=== PATIENT | female | born 1960 | race Hispanic/Latino ===

== ENCOUNTER 2017-05-24 22:16 | Emergency (ER) | payer SELFPAY ==
[2017-05-24] MEDS ORDERED: CATAPRES PO ONE (23:08)
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
[2017-05-25] MEDS ORDERED: TORADOL IM ONE (00:30)
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
[2017-05-25 05:37] VITALS: BP 159/106
== END 2017-05-25 02:50 | disposition home or self-care (01) ==
LOC: ED 22:16
DX: S80.01XA Contusion of right knee, initial encounter (principal); M19.90 Unspecified osteoarthritis, unspecified site; M54.89 Other dorsalgia; M54.2 Cervicalgia; I10 Essential (primary) hypertension; K21.9 Gastro-esophageal reflux disease without esophagitis; V89.2XXA Person injured in unspecified motor-vehicle accident, traffic, initial encounter; Y93.89 Activity, other specified; Y92.89 Other specified places as the place of occurrence of the external cause; Y99.8 Other external cause status
CPT/HCPCS: 72040; 72072; 72100; 72170; 73030; 73562; 96372; 99283; J1885

== ENCOUNTER 2017-07-12 13:09 | Inpatient (IN) | payer SELFPAY ==
--- NOTE | 2017-07-12 13:38 | XRay Report ---
Chest 2 views: History: Shortness of breath. Findings: Normal cardiomediastinal silhouette the trachea is midline. No consolidation, pneumothorax or pleural effusion. Impression: No acute cardiopulmonary findings.
[2017-07-12] MEDS ORDERED: PROVENTIL IH ONE (13:39)
[2017-07-12] MEDS ORDERED: ATROVENT IH ONE (13:39)
[2017-07-12] MEDS ORDERED: TESSALON PERLES PO ONE (13:40)
[2017-07-12] MEDS ORDERED: CATAPRES PO ONE (13:49)
--- NOTE | 2017-07-12 13:54 | Emergency Department Report ---
HPI - General Chief Complaint: Dyspnea/Respdistress Time Seen by Provider: 07/12/17 13:29 - HPI HPI: Room 19 The patient is a 56-year-old female presenting with a chief complaint of "I feel like I have pneumonia." The patient states for the past 5 days she has had shortness of breath and back pain and a cough productive of green sputum. Patient does admit to rhinorrhea. Patient states she gets a headache whenever she coughs. The patient states she had a fever of 104.3F. The patient states there are sick contacts at home. Patient states she feels same way she felt when she was diagnosed with pneumonia in the past Location: Lungs, see above Duration: For 5 days Quality: Shortness of breath Severity: Moderate Modifying factors: [see above] Context: [see above] Mode of transportation: Unknown ED Past Medical Hx - Past Medical History Hx Hypertension: Yes Hx GERD: Yes Hx Arthritis: Yes Hx Asthma: Yes Additional medical history: bronchitis, knee arthritis bilaterally,obesity- morbid - Surgical History Additional Surgical History: bilateral knee surgery - Family History Family history: no significant - Social History Smoking Status: Never Smoker Substance Use Type: None (denies illicit drug use) - Medications Home Medications: Home Medications Medication Instructions Recorded Confirmed Last Taken Type Hydrochlorothiazide 25 mg PO DAILY #30 tablet 07/05/14 07/28/14 07/28/14 Rx Metoprolol [Lopressor TAB] 100 mg PO DAILY #30 tablet 07/05/14 07/28/14 Rx amLODIPine [Norvasc] 10 mg PO DAILY #30 tablet 07/05/14 07/28/14 07/28/14 Rx cloNIDine [Catapres] 0.2 mg PO BID #60 tablet 07/05/14 07/28/14 07/28/14 Rx Carisoprodol [Soma] 250 mg PO TIDHS #20 tablet 07/28/14 Unknown Rx Ibuprofen [Motrin] 800 mg PO Q8HR PRN #10 tablet 05/25/17 Unknown Rx oxyCODONE /ACETAMINOPHEN [Percocet 1 tab PO Q6HR PRN #15 tablet 05/25/17 Unknown Rx 5/325 mg] ED Review of Systems ROS: Stated complaint: PNEUMONIA Other details as noted in HPI Constitutional: fever ENT: congestion, other (rhinorrhea) Respiratory: cough, shortness of breath Musculoskeletal: back pain Neurological: headache Physical Exam - Physical Exam Vital Signs: Vital Signs 07/12/17 13:11 Temperature 98.3 F Pulse Rate 96 H Respiratory 20 Rate Blood Pressure 198/113 O2 Sat by Pulse 93 Oximetry Physical Exam: GENERAL: The patient is well-developed well-nourished female lying on stretcher with occasional cough. [] HEENT: Normocephalic. Atraumatic. Extraocular motions are intact. Patient has moist mucous membranes. NECK: Supple. No meningitic signs are noted. Trachea midline CHEST/LUNGS: Rhonchi and occasional cough. There is no respiratory distress noted. HEART/CARDIOVASCULAR: Regular. There is no tachycardia. There is no gallop rub or murmur. ABDOMEN: Abdomen is soft, nontender. Patient has normal bowel sounds. There is no abdominal distention. SKIN: There is no rash. There is no edema. There is no diaphoresis. NEURO: The patient is awake, alert, and oriented. The patient is cooperative. The patient has normal speech MUSCULOSKELETAL: There is no evidence of acute injury. ED Course Vital Signs 07/12/17 13:11 Temperature 98.3 F Pulse Rate 96 H Respiratory 20 Rate Blood Pressure 198/113 O2 Sat by Pulse 93 Oximetry ED Medical Decision Making - Lab Data Result diagrams: 07/12/17 13:39 07/12/17 13:39 Laboratory Tests 07/12/17 07/12/17 13:39 13:39 WBC 7.3 RBC 4.94 Hgb 14.0 Hct 43.3 H MCV 88 MCH 28 MCHC 32 RDW 15.0 Plt Count 197 Lymph % (Auto) 29.8 [place] % (Auto) 11.7 H Eos % (Auto) 5.3 H Baso % (Auto) 0.7 Lymph # 2.2 Isabella # 0.9 H Eos # 0.4 Baso # 0.1 Seg Neutrophils % 52.5 Seg Neutrophils # 3.8 Sodium 143 Potassium 3.7 Chloride 102.0 Carbon Dioxide 29 Anion Gap 16 BUN 10 Creatinine 0.7 Estimated GFR > 60 BUN/Creatinine Ratio 14 Glucose 105 H Calcium 8.4 Influenza negative - EKG Data -: EKG Interpreted by Ca EKG shows normal: sinus rhythm Rate: normal - EKG Data When compared to previous EKG there are: previous EKG unavailable Interpretation: nonspecific ST-T wave sarah (T-wave inversion in aVL) - Radiology Data Radiology results: report reviewed (chest x-ray), image reviewed (chest x-ray) interpreted by me: Chest x-ray-no focal infiltrates, no pneumothorax Chest 2 views: History: Shortness of breath. Findings: Normal cardiomediastinal silhouette the trachea is midline. No consolidation, pneumothorax or pleural effusion. Impression: No acute cardiopulmonary findings. Transcribed By: PTP Dictated By: KAIDEN KEVIN MD Electronically Authenticated By: KAIDEN KEVIN MD Signed Date/Time: 07/12/171320 DD/ 20 TD/TT: 07/12/171320 - Differential Diagnosis pneumonia, bronchitis, influenza Critical care attestation.: If time is entered above; I have spent that time in minutes in the direct care of this critically ill patient, excluding procedure time. ED Disposition Clinical Impression: Shortness of breath, Hypoxia, Productive cough Disposition: 09 OP ADMIT IP TO THIS HOSP Is pt being admited?: Yes Does the pt Need Aspirin: No Condition: Fair Time of Disposition: 14:36 (hospitalist paged (Dr Quan))
[2017-07-12 13:55] LABS: Basophils # (Auto) 0.1 K/mm3 (0.0-0.1); Basophils % (Auto) 0.7 % (0.0-1.8); Eosinophils # (Auto) 0.4 K/mm3 (0.0-0.4); Eosinophils % (Auto) 5.3 % (0.0-4.3); Hematocrit 43.3 % (30.3-42.9); Lymphocytes # (Auto) 2.2 K/mm3 (1.2-5.4); Lymphocytes % (Auto) 29.8 % (13.4-35.0); Mean Corpuscular HGB Conc 32 % (30-34); Mean Corpuscular Hemoglobin 28 pg (28-32); Mean Corpuscular Volume 88 fl (79-97); Monocytes # (Auto) 0.9 K/mm3 (0.0-0.8); Monocytes % (Auto) 11.7 % (0.0-7.3); Platelet Count 197 K/mm3 (140-440); Red Blood Count 4.94 M/mm3 (3.65-5.03)
[2017-07-12 14:10] LABS: BUN/Creatinine Ratio 14; Blood Urea Nitrogen 10 mg/dL (7-17); Calcium 8.4 mg/dL (8.4-10.2); Hemolysis Index 5
[2017-07-12] MEDS ORDERED: LEVAQUIN 500MG/100ML 500 MG/100 ML BAG IV ONE (14:35)
--- NOTE | 2017-07-12 19:22 | History and Physical Report ---
History of Present Illness Date of examination: 07/12/17 Date of admission: 07/12/17 15:28 Chief complaint: Cc Fever /Cough 3 to 4 days History of present illness: EMILIE 56-year-old AA female presenting with a chief complaint of possible "Pneumonia ".The patient states for the past 5 days she has had shortness of breath and back pain and a cough productive of green sputum. Patient does admit to rhinorrhea. Patient states she gets a headache whenever she coughs. The patient states she had a fever of 104.3F. The patient states there are sick contacts at home. Patient states she feels same way she felt when she was diagnosed with pneumonia in the past. No exacerbating or relieving factors. Past Medical History Hx Hypertension: Yes Hx GERD: Yes Hx Arthritis: Yes Hx Asthma: Yes Additional medical history: bronchitis, knee arthritis bilaterally,obesity- morbid Surgical History Additional Surgical History: bilateral knee surgery Family History Family history: no significant Social History Smoking Status: Never Smoker Substance Use Type: None (denies illicit drug use) Medications Home Medications: Home Medications Medication Instructions Recorded Confirmed Last Taken Type Hydrochlorothiazide 25 mg PO DAILY #30 tablet 07/05/14 07/28/14 07/28/14 Rx Metoprolol [Lopressor TAB] 100 mg PO DAILY #30 tablet 07/05/14 07/28/14 Rx amLODIPine [Norvasc] 10 mg PO DAILY #30 tablet 07/05/14 07/28/14 07/28/14 Rx cloNIDine [Catapres] 0.2 mg PO BID #60 tablet 07/05/14 07/28/14 07/28/14 Rx Carisoprodol [Soma] 250 mg PO TIDHS #20 tablet 07/28/14 Unknown Rx Ibuprofen [Motrin] 800 mg PO Q8HR PRN #10 tablet 05/25/17 Unknown Rx oxyCODONE /ACETAMINOPHEN [Percocet 1 tab PO Q6HR PRN #15 tablet 05/25/17 Unknown Rx 5/325 mg] Medications and Allergies Allergies Allergy/AdvReac Type Severity Reaction Status Date / Time No Known Allergies Allergy Verified 07/12/17 13:11 Home Medications Medication Instructions Recorded Confirmed Last Taken Type cloNIDine [Catapres] 0.2 mg PO BID #60 tablet 12/24/14 12/31/17 01/16/15 Rx Carisoprodol [Soma] 250 mg PO TIDHS #20 tablet 07/28/14 07/12/17 Unknown Rx Ibuprofen [Motrin] 800 mg PO Q8HR PRN #10 tablet 05/25/17 07/12/17 Unknown Rx oxyCODONE /ACETAMINOPHEN [Percocet 1 tab PO Q6HR PRN #15 tablet 05/25/17 Unknown Rx 5/325 mg] Verapamil HCl [Verapamil ER] 120 mg PO DAILY 07/12/17 07/12/17 Unknown History Review of Systems All systems: negative Constitutional: fever, chills, anorexia, lethargy, poor appetite, chronic pain, no weight loss, no weight gain Ears, nose, mouth and throat: no sore throat, no swelling in mouth, no swelling in throat, no odynophagia Breasts: deferred Cardiovascular: shortness of breath, no chest pain, no orthopnea, no palpitations, no rapid/irregular heart beat, no edema, no syncope, no lightheadedness Respiratory: cough, cough with sputum, shortness of breath, congestion, wheezing Gastrointestinal: no abdominal pain, no nausea, no vomiting, no diarrhea, no constipation Genitourinary Female: no dysuria, no urinary frequency, no urgency, no stress incontinence Musculoskeletal: no neck stiffness, no neck pain, no shooting arm pain, no shooting leg pain Integumentary: no rash, no pruritis, no redness Neurological: no seizures, no syncope Psychiatric: no anxiety, no memory loss, no change in sleep habits, no sleep disturbances Endocrine: no cold intolerance, no heat intolerance, no polyphagia, no excessive thirst Hematologic/Lymphatic: no easy bruising, no easy bleeding Allergic/Immunologic: no urticaria, no allergic rhinitis, no wheezing Exam - Constitutional Vitals: Temp Pulse Resp BP Pulse Ox 98.3 F 82 27 H 143/87 96 07/12/17 13:11 07/12/17 19:01 07/12/17 19:01 07/12/17 19:01 07/12/17 19:01 General appearance: Present: no acute distress, well-nourished - EENT Eyes: Present: PERRL ENT: hearing intact, clear oral mucosa - Neck Neck: Present: supple, normal ROM - Respiratory Respiratory effort: normal Respiratory: bilateral: rales, rhonchi - Cardiovascular Heart rate: 80 Rhythm: regular Heart Sounds: Present: S1 & S2. Absent: rub, click - Extremities Extremities: no ischemia, pulses intact, pulses symmetrical, No edema Peripheral Pulses: within normal limits - Abdominal General gastrointestinal: Present: soft, non-tender, non-distended, normal bowel sounds Female genitourinary: Present: normal - Rectal Rectal Exam: deferred - Integumentary Integumentary: Present: clear, warm, dry - Musculoskeletal Musculoskeletal: gait normal, strength equal bilaterally - Psychiatric Psychiatric: appropriate mood/affect, intact judgment & insight - Neurologic Neurologic: CNII-XII intact, moves all extremities - Allied Health Allied health notes reviewed: nursing, case management Results - Labs CBC & Chem 7: 07/12/17 13:39 07/12/17 13:39 Labs: Laboratory Last Values WBC 7.3 K/mm3 (4.5-11.0) 07/12/17 13:39 RBC 4.94 M/mm3 (3.65-5.03) 07/12/17 13:39 Hgb 14.0 gm/dl (10.1-14.3) 07/12/17 13:39 Hct 43.3 % (30.3-42.9) H 07/12/17 13:39 MCV 88 fl (79-97) 07/12/17 13:39 MCH 28 pg (28-32) 07/12/17 13:39 MCHC 32 % (30-34) 07/12/17 13:39 RDW 15.0 % (13.2-15.2) 07/12/17 13:39 Plt Count 197 K/mm3 (140-440) 07/12/17 13:39 Lymph % (Auto) 29.8 % (13.4-35.0) 07/12/17 13:39 [place] % (Auto) 11.7 % (0.0-7.3) H 07/12/17 13:39 Eos % (Auto) 5.3 % (0.0-4.3) H 07/12/17 13:39 Baso % (Auto) 0.7 % (0.0-1.8) 07/12/17 13:39 Lymph # 2.2 K/mm3 (1.2-5.4) 07/12/17 13:39 [place] # 0.9 K/mm3 (0.0-0.8) H 07/12/17 13:39 Eos # 0.4 K/mm3 (0.0-0.4) 07/12/17 13:39 Baso # 0.1 K/mm3 (0.0-0.1) 07/12/17 13:39 Seg Neutrophils % 52.5 % (40.0-70.0) 07/12/17 13:39 Seg Neutrophils # 3.8 K/mm3 (1.8-7.7) 07/12/17 13:39 POC ABG pH 7.360 (7.35-7.45) 07/12/17 13:56 POC ABG pCO2 52.8 (35-45) H 07/12/17 13:56 POC ABG pO2 60 (80-105) L 07/12/17 13:56 POC ABG HCO3 29.8 07/12/17 13:56 POC ABG Total CO2 31 07/12/17 13:56 POC ABG O2 Sat 89 07/12/17 13:56 POC ABG Base Excess 4 07/12/17 13:56 FiO2 21 % 07/12/17 13:56 Sodium 143 mmol/L (137-145) 07/12/17 13:39 Potassium 3.7 mmol/L (3.6-5.0) 07/12/17 13:39 Chloride 102.0 mmol/L (98-107) 07/12/17 13:39 Carbon Dioxide 29 mmol/L (22-30) 07/12/17 13:39 Anion Gap 16 mmol/L 07/12/17 13:39 BUN 10 mg/dL (7-17) 07/12/17 13:39 Creatinine 0.7 mg/dL (0.7-1.2) 07/12/17 13:39 Estimated GFR > 60 ml/min 07/12/17 13:39 BUN/Creatinine Ratio 14 % 07/12/17 13:39 Glucose 105 mg/dL (65-100) H 07/12/17 13:39 Calcium 8.4 mg/dL (8.4-10.2) 07/12/17 13:39 Short CBC 07/12/17 Range/Units 13:39 WBC 7.3 (4.5-11.0) K/mm3 Hgb 14.0 (10.1-14.3) gm/dl Hct 43.3 H (30.3-42.9) % Plt Count 197 (140-440) K/mm3 [facility] 07/12/17 13:39 Sodium 143 Potassium 3.7 Chloride 102.0 Carbon Dioxide 29 BUN 10 Creatinine 0.7 Glucose 105 H Calcium 8.4 - Imaging and Cardiology EKG: report reviewed Chest x-ray: report reviewed (NAF) Assessment and Plan Advance Directives: Yes (FC) VTE prophylaxis?: Chemical Plan of care discussed with patient/family: Yes - Patient Problems (1) Acute respiratory failure Current Visit: No Status: Acute Qualifiers: Respiratory failure complication: hypoxia Qualified Code(s): J96.01 - Acute respiratory failure with hypoxia Plan to address problem: Patient had sats of 88 in ER.Hence treat as resp failure.IV abx low dose steroids and Duonebs (2) Pneumonia Current Visit: Yes Status: Acute Qualifiers: Lung location: unspecified part of lung Plan to address problem: Early pneumonia Started on IV Levaquin (3) HTN (hypertension) Current Visit: Yes Status: Chronic Qualifiers: Hypertension type: essential hypertension Qualified Code(s): I10 - Essential (primary) hypertension Plan to address problem: Cont antihypertensives (4) Chronic pain Current Visit: Yes Status: Chronic Qualifiers: Chronic pain type: chronic pain syndrome Qualified Code(s): G89.4 - Chronic pain syndrome Plan to address problem: Cont Analgesics (5) DVT prophylaxis Current Visit: Yes Status: Acute Plan to address problem: On Lovenox
[2017-07-12] MEDS ORDERED: MOTRIN PO PRN (19:23)
[2017-07-12] MEDS: DUONEB *Not for PRN Use IH SCH (20:50)
[2017-07-12] MEDS: CALAN SR PO SCH (21:23)
[2017-07-12] MEDS: CATAPRES PO SCH (23:40)
[2017-07-13] MEDS: PERCOCET 5/325 PO PRN ×3 (01:00→22:00)
[2017-07-13] MEDS: TESSALON PERLES PO PRN ×3 (05:34→22:00)
[2017-07-13] MEDS ORDERED: DUONEB *Not for PRN Use IH ONE (07:39)
[2017-07-13] MEDS: DUONEB *Not for PRN Use IH SCH ×4 (07:41→19:25)
[2017-07-13] MEDS: CALAN SR PO SCH (10:13)
[2017-07-13] MEDS: CATAPRES PO SCH ×2 (10:13→22:32)
[2017-07-13] MEDS: LEVAQUIN 750MG/150ML 750 MG/150 ML BAG IV SCH (13:20)
--- NOTE | 2017-07-13 16:50 | Discharge Summary ---
Providers - Providers Date of Admission: 07/12/17 15:28 Attending physician: BERNIE ALANIS MD Primary care physician: FORREST FERNANDO Hospitalization Condition: Fair Hospital course: 57-year-old man who presented with fever and shortness of breath. She was found to have acute bronchitis and acute respiratory failure. She was treated with antibiotic steroids and nebulizer treatments. Pneumonia was excluded based on x-ray findings. She clinically improved on subsequent disorders Discharge diagnoses Acute hypoxic respiratory failure Pneumonia was ruled out Hypertension Chronic pain syndrome Acute bronchitis Disposition: TO HOME OR SELFCARE Time spent for discharge: 33 minutes Core Measure Documentation - Palliative Care Palliative Care/ Comfort Measures: Not Applicable - Core Measures Any of the following diagnoses?: none Exam - Constitutional Vitals: Temp Pulse Resp BP Pulse Ox 98.3 F 71 22 120/49 93 07/13/17 15:18 07/13/17 15:18 07/13/17 15:18 07/13/17 15:18 07/13/17 15:18 General appearance: Present: no acute distress, well-nourished - EENT Eyes: Present: PERRL ENT: hearing intact, clear oral mucosa - Neck Neck: Present: supple, normal ROM - Respiratory Respiratory effort: normal Respiratory: bilateral: CTA - Cardiovascular Heart Sounds: Present: S1 & S2. Absent: rub, click - Extremities Extremities: pulses symmetrical, No edema Peripheral Pulses: within normal limits - Abdominal General gastrointestinal: Present: soft, non-tender, non-distended, normal bowel sounds Female genitourinary: Present: normal - Integumentary Integumentary: Present: clear, warm, dry - Musculoskeletal Musculoskeletal: gait normal, strength equal bilaterally - Psychiatric Psychiatric: appropriate mood/affect, intact judgment & insight - Neurologic Neurologic: CNII-XII intact, moves all extremities Plan Follow up with: FORREST FERNANDO MD [Primary Care Provider] - 7 Days Prescriptions: Azithromycin [Zithromax Z-TEAGAN] 0 mg PO DAILY #1 pack Ipratropium/Albuterol Sulfate [Combivent Respimat] 1 spray IH QID #1 aer.w.adap oxyCODONE /ACETAMINOPHEN [Percocet 5/325 mg] 1 tab PO Q6HR PRN #15 tablet PRN Reason: Pain Prednisone [predniSONE 10 mg (6-Day Pack, 21 Tabs)] 10 mg PO .TAPER #1 tab.ds.pk
--- NOTE | 2017-07-13 18:10 | Progress Note ---
Assessment and Plan Assessment and plan: 57f admitted with sob and cough, found to have acute bronchitis Acute hypoxic respiratory failure attempt to wean off oxygen Pneumonia was ruled out Hypertension continue BP meds Chronic pain syndrome continue pain meds Acute bronchitis continue steroids, abx and nebs History Interval history: Review of systems Constitutional: No fevers, no malaise, no joint pains CVS: No chest pain, no orthopnea, no dyspnea on exertion, no pedal edema GI: No abdominal pain, no diarrhea, no vomiting, no constipation Respiratory: admits sob and productive coungKASSANDRA Hospitalist Physical - Constitutional Vitals: Temp Pulse Resp BP Pulse Ox 98.3 F 71 22 120/49 93 07/13/17 15:18 07/13/17 15:18 07/13/17 15:18 07/13/17 15:18 07/13/17 15:18 General appearance: Present: no acute distress, well-nourished, obese - EENT Eyes: Present: PERRL ENT: hearing intact - Neck Neck: Present: supple - Respiratory Respiratory effort: normal Respiratory: bilateral: rhonchi - Cardiovascular Rhythm: regular Heart Sounds: Present: S1 & S2 - Extremities Extremities: no ischemia Peripheral Pulses: within normal limits - Abdominal General gastrointestinal: soft, non-tender - Integumentary Integumentary: Present: clear, warm, dry - Psychiatric Psychiatric: appropriate mood/affect, intact judgment & insight - Neurologic Neurologic: CNII-XII intact, no focal deficits, moves all extremities Results - Labs CBC & Chem 7: 07/12/17 13:39 07/12/17 13:39 Labs: Laboratory Last Values WBC 7.3 K/mm3 (4.5-11.0) 07/12/17 13:39 RBC 4.94 M/mm3 (3.65-5.03) 07/12/17 13:39 Hgb 14.0 gm/dl (10.1-14.3) 07/12/17 13:39 Hct 43.3 % (30.3-42.9) H 07/12/17 13:39 MCV 88 fl (79-97) 07/12/17 13:39 MCH 28 pg (28-32) 07/12/17 13:39 MCHC 32 % (30-34) 07/12/17 13:39 RDW 15.0 % (13.2-15.2) 07/12/17 13:39 Plt Count 197 K/mm3 (140-440) 07/12/17 13:39 Lymph % (Auto) 29.8 % (13.4-35.0) 07/12/17 13:39 Thurston % (Auto) 11.7 % (0.0-7.3) H 07/12/17 13:39 Eos % (Auto) 5.3 % (0.0-4.3) H 07/12/17 13:39 Baso % (Auto) 0.7 % (0.0-1.8) 07/12/17 13:39 Lymph # 2.2 K/mm3 (1.2-5.4) 07/12/17 13:39 Thurston # 0.9 K/mm3 (0.0-0.8) H 07/12/17 13:39 Eos # 0.4 K/mm3 (0.0-0.4) 07/12/17 13:39 Baso # 0.1 K/mm3 (0.0-0.1) 07/12/17 13:39 Seg Neutrophils % 52.5 % (40.0-70.0) 07/12/17 13:39 Seg Neutrophils # 3.8 K/mm3 (1.8-7.7) 07/12/17 13:39 POC ABG pH 7.360 (7.35-7.45) 07/12/17 13:56 POC ABG pCO2 52.8 (35-45) H 07/12/17 13:56 POC ABG pO2 60 (80-105) L 07/12/17 13:56 POC ABG HCO3 29.8 07/12/17 13:56 POC ABG Total CO2 31 07/12/17 13:56 POC ABG O2 Sat 89 07/12/17 13:56 POC ABG Base Excess 4 07/12/17 13:56 FiO2 21 % 07/12/17 13:56 Sodium 143 mmol/L (137-145) 07/12/17 13:39 Potassium 3.7 mmol/L (3.6-5.0) 07/12/17 13:39 Chloride 102.0 mmol/L (98-107) 07/12/17 13:39 Carbon Dioxide 29 mmol/L (22-30) 07/12/17 13:39 Anion Gap 16 mmol/L 07/12/17 13:39 BUN 10 mg/dL (7-17) 07/12/17 13:39 Creatinine 0.7 mg/dL (0.7-1.2) 07/12/17 13:39 Estimated GFR > 60 ml/min 07/12/17 13:39 BUN/Creatinine Ratio 14 % 07/12/17 13:39 Glucose 105 mg/dL (65-100) H 07/12/17 13:39 Calcium 8.4 mg/dL (8.4-10.2) 07/12/17 13:39
[2017-07-14] MEDS: DUONEB *Not for PRN Use IH SCH ×4 (01:56→19:19)
[2017-07-14] MEDS: PERCOCET 5/325 PO PRN ×2 (07:34→14:21)
[2017-07-14] MEDS: TESSALON PERLES PO PRN ×2 (07:35→14:20)
[2017-07-14] MEDS: CALAN SR PO SCH (09:54)
[2017-07-14] MEDS: CATAPRES PO SCH (09:55)
[2017-07-14] MEDS ORDERED: PNEUMOVAX 23 IM ONE (12:00)
[2017-07-14] MEDS ORDERED: Fluarix Quad 2017-2018(36 MOS+ IM ONE (12:00)
[2017-07-14] MEDS: LEVAQUIN 750MG/150ML 750 MG/150 ML BAG IV SCH (16:19)
[2017-07-14 18:30] VITALS: BP 125/68
== END 2017-07-14 19:30 | disposition home or self-care (01) | DRG 189 ==
LOC: ED 13:09 → 3A 15:28
PROVIDERS: ADMIT Internal Medicine; ATTEND Internal Medicine
PROC: 4A033R1 Measurement of Arterial Saturation, Peripheral, Percutaneous Approach (ICD-10-PCS; principal; 2017-07-12)
PROC: 3E0234Z Introduction of Serum, Toxoid and Vaccine into Muscle, Percutaneous Approach (ICD-10-PCS; 2017-07-14)
DX: J96.01 Acute respiratory failure with hypoxia (principal); Z68.42 Body mass index [BMI] 45.0-49.9, adult; J20.9 Acute bronchitis, unspecified; I10 Essential (primary) hypertension; G89.4 Chronic pain syndrome; K21.9 Gastro-esophageal reflux disease without esophagitis; E66.01 Morbid (severe) obesity due to excess calories; M17.0 Bilateral primary osteoarthritis of knee; Z79.899 Other long term (current) drug therapy; Z23 Encounter for immunization
CPT/HCPCS: 36415; 71020; 80048; 82803; 85025; 87040; 87400; 90686; 90732; 93005; 93010; 94640; 94760; 96365; J1956; J2920

== ENCOUNTER 2018-10-16 18:38 | Emergency (ER) | payer SELFPAY ==
[2018-10-16] MEDS ORDERED: MORPHINE IV ONE (19:49)
[2018-10-16] MEDS ORDERED: TORADOL IV ONE (19:49)
[2018-10-16] MEDS ORDERED: ZOFRAN IV ONE (19:49)
--- NOTE | 2018-10-16 21:27 | XRay Report ---
PROCEDURE: XR HUMERUS 2+V LT TECHNIQUE: 3 views of the left humerus HISTORY: fall injury COMPARISONS: FINDINGS: There is some inferior subluxation of the humerus at the glenohumeral joint space. No acute fracture identified. No anterior or posterior dislocation identified. IMPRESSION: Inferior subluxation of the humerus without definitive anterior or posterior dislocation. No fracture identified. This document is electronically signed by Darin Limon MD., October 16 2018 09:25:49 PM ET
--- NOTE | 2018-10-16 22:25 | XRay Report ---
PROCEDURE: LEFT SHOULDER, 3 OR MORE VIEWS TECHNIQUE: LEFT shoulder radiographs including AP views in internal and external rotation and abduct ion. CPT 20696 HISTORY: Trauma and pain COMPARISONS: None . FINDINGS: Fracture (s) and/or Dislocation(s): There is avulsion fracture of the greater tuberosity. There is w idening of the glenohumeral joint suggesting a joint effusion. There is no roxanne dislocation. . Joint space(s): Normal . Soft tissues: Normal . Bone mineralization: Normal . Foreign bodies: None . IMPRESSION: There is avulsion fracture of the greater tuberosity of the humeral head. There is widen ing of the glenohumeral joint suggesting a joint effusion. There is no roxanne dislocation. . . This document is electronically signed by Richard Alexander MD., October 16 2018 10:23:33 PM ET
--- NOTE | 2018-10-16 22:39 | Emergency Department Report ---
ED Extremity Problem HPI - General Chief complaint: Fall Stated complaint: DISLOCATED (L) SHOULDER Time Seen by Provider: 10/16/18 19:48 Source: patient, EMS Mode of arrival: Stretcher Limitations: No Limitations - History of Present Illness Initial comments: Patient is a 58-year-old female who was at the movies with her grandchildren and while entering a doorway the door swung out faster than she was expecting and hit her and knocked her to the ground. Patient fell on the left upper extremity. Patient has 10 out of 10 pain with any movement of the left shoulder. Patient states as a throbbing aching pain. Patient denies any other injury at this time. Severity scale (0 -10): 8 - Related Data Previous Rx's Medication Instructions Recorded Last Taken Type Ibuprofen [Motrin 800 MG tab] 800 mg PO Q8HR PRN #10 tablet 05/25/17 Unknown Rx ALBUTEROL Inhaler (OR & NICU) 2 puff IH QID PRN #1 inhalation 07/13/17 Unknown Rx [ProAir HFA Inhaler] Amoxicillin [Trimox CAP] 500 mg PO Q8H #14 capsule 07/13/17 Unknown Rx Benzonatate [Tessalon Perles] 100 mg PO TID PRN #14 capsule 07/13/17 Unknown Rx Ipratropium/Albuterol Sulfate 1 spray IH QID #1 aer.w.adap 07/13/17 Unknown Rx [Combivent Respimat] Prednisone [predniSONE 10 mg 10 mg PO .TAPER #1 tab.ds.pk 07/13/17 Unknown Rx (6-Day Pack, 21 Tabs)] Verapamil HCl [Verapamil ER] 120 mg PO DAILY #30 tablet.er 07/13/17 Unknown Rx cloNIDine [Catapres] 0.2 mg PO BID #60 tablet 07/13/17 Unknown Rx oxyCODONE /ACETAMINOPHEN [Percocet 1 tab PO Q6HR PRN #15 tablet 07/13/17 Unknown Rx 5/325 mg] Ibuprofen [Ibu] 800 mg PO Q8H PRN #20 tablet 10/16/18 Unknown Rx Oxycodone HCl/Acetaminophen 1 each PO Q6HR PRN #15 tablet 10/16/18 Unknown Rx [Percocet 7.5/325 mg] methOCARBAMOL [Robaxin TAB] 500 mg PO Q6H PRN #14 tablet 10/16/18 Unknown Rx Allergies Allergy/AdvReac Type Severity Reaction Status Date / Time No Known Allergies Allergy Verified 07/12/17 13:11 ED Review of Systems ROS: Stated complaint: DISLOCATED (L) SHOULDER Other details as noted in HPI Comment: All other systems reviewed and negative ED Past Medical Hx - Past Medical History Hx Hypertension: Yes Hx GERD: Yes Hx Arthritis: Yes (knees hand back) Hx Asthma: Yes Additional medical history: bronchitis, knee arthritis bilaterally,obesity- morbid - Surgical History Additional Surgical History: bilateral knee surgery - Social History Smoking Status: Never Smoker Substance Use Type: None - Medications Home Medications: Home Medications Medication Instructions Recorded Confirmed Last Taken Type Ibuprofen [Motrin 800 MG tab] 800 mg PO Q8HR PRN #10 tablet 05/25/17 07/12/17 Unknown Rx ALBUTEROL Inhaler (OR & NICU) 2 puff IH QID PRN #1 inhalation 07/13/17 Unknown Rx [ProAir HFA Inhaler] Amoxicillin [Trimox CAP] 500 mg PO Q8H #14 capsule 07/13/17 Unknown Rx Benzonatate [Tessalon Perles] 100 mg PO TID PRN #14 capsule 07/13/17 Unknown Rx Ipratropium/Albuterol Sulfate 1 spray IH QID #1 aer.w.adap 07/13/17 Unknown Rx [Combivent Respimat] Prednisone [predniSONE 10 mg 10 mg PO .TAPER #1 tab.ds.pk 07/13/17 Unknown Rx (6-Day Pack, 21 Tabs)] Verapamil HCl [Verapamil ER] 120 mg PO DAILY #30 tablet.er 07/13/17 Unknown Rx cloNIDine [Catapres] 0.2 mg PO BID #60 tablet 07/13/17 Unknown Rx oxyCODONE /ACETAMINOPHEN [Percocet 1 tab PO Q6HR PRN #15 tablet 07/13/17 Unknown Rx 5/325 mg] Ibuprofen [Ibu] 800 mg PO Q8H PRN #20 tablet 10/16/18 Unknown Rx Oxycodone HCl/Acetaminophen 1 each PO Q6HR PRN #15 tablet 10/16/18 Unknown Rx [Percocet 7.5/325 mg] methOCARBAMOL [Robaxin TAB] 500 mg PO Q6H PRN #14 tablet 10/16/18 Unknown Rx ED Physical Exam - General Limitations: No Limitations General appearance: alert, in no apparent distress - Head Head exam: Present: atraumatic, normocephalic - Eye Eye exam: Present: normal appearance - ENT ENT exam: Present: mucous membranes moist - Neck Neck exam: Present: normal inspection - Respiratory Respiratory exam: Present: normal lung sounds bilaterally. Absent: respiratory distress, wheezes, rales, rhonchi - Cardiovascular Cardiovascular Exam: Present: regular rate, normal rhythm. Absent: systolic murmur, diastolic murmur, rubs, gallop - GI/Abdominal GI/Abdominal exam: Present: soft, normal bowel sounds - Extremities Exam Extremities exam: Present: normal inspection, tenderness (to the left shoulder. Patient has decreased range of motion secondary to pain.). Absent: full ROM - Back Exam Back exam: Present: normal inspection - Neurological Exam Neurological exam: Present: alert, oriented X3 - Psychiatric Psychiatric exam: Present: normal affect, normal mood - Skin Skin exam: Present: warm, dry, intact, normal color. Absent: rash ED Course Vital Signs 10/16/18 19:29 Temperature 98.3 F Pulse Rate 87 Respiratory 18 Rate Blood Pressure 148/107 [Right] O2 Sat by Pulse 96 Oximetry ED Medical Decision Making - Radiology Data [facility] [address] [place] [address] XRay Report Signed Patient: CONNIE ESTRADA MR#: [id number] : 1960 Acct:[id number] Age/Sex: 58 / F ADM Date: 10/16/18 Loc: ED Attending Dr: Ordering Physician: MARY GERBER MD Date of Service: 10/16/18 Procedure(s): XR humerus 2+V LT Accession Number(s): [id number] cc: MARY GERBER MD Fluoro Time In Minutes: PROCEDURE: XR HUMERUS 2+V LT TECHNIQUE: 3 views of the left humerus HISTORY: fall injury COMPARISONS: FINDINGS: There is some inferior subluxation of the humerus at the glenohumeral joint space. No acute fracture identified. No anterior or posterior dislocation identified. IMPRESSION: Inferior subluxation of the humerus without definitive anterior or posterior dislocation. No fracture identified. This document is electronically signed by Darin Villafana MD., October 16 2018 09:25:49 PM ET Transcribed By: LAINE Dictated By: DEREK VILLAFANA MD Electronically Authenticated By: DEREK VILLAFANA MD Signed Date/Time: 10/16/182126 [facility] [address] [place] [address] XRay Report Signed Patient: CONNIE ESTRADA MR#: [id number] : 1960 Acct:[id number] Age/Sex: 58 / F ADM Date: 10/16/18 Loc: ED Attending Dr: Ordering Physician: MARY GERBER MD Date of Service: 10/16/18 Procedure(s): XR shoulder 2+V LT Accession Number(s): [id number] cc: MARY GERBER MD Fluoro Time In Minutes: PROCEDURE: LEFT SHOULDER, 3 OR MORE VIEWS TECHNIQUE: LEFT shoulder radiographs including AP views in internal and external rotation and abduction. CPT 27230 HISTORY: Trauma and pain COMPARISONS: None . FINDINGS: Fracture (s) and/or Dislocation(s): There is avulsion fracture of the greater tuberosity. There is widening of the glenohumeral joint suggesting a joint effusion. There is no roxanne dislocation. . Joint space(s): Normal . Soft tissues: Normal . Bone mineralization: Normal . Foreign bodies: None . IMPRESSION: There is avulsion fracture of the greater tuberosity of the humeral head. There is widening of the glenohumeral joint suggesting a joint effusion. There is no roxanne dislocation. . . This document is electronically signed by Ysabel Damon MD., October 16 2018 10:23:33 PM ET Transcribed By: CO Dictated By: YSABEL DAMON MD Electronically Authenticated By: YSABEL DAMON MD Signed Date/Time: 10/16/182224 DD/ 27 TD/TT: 10/16/182027 - Medical Decision Making Patient placed in a shoulder immobilizer and patient will be discharged home with follow-up with orthopedics. Critical care attestation.: If time is entered above; I have spent that time in minutes in the direct care of this critically ill patient, excluding procedure time. ED Disposition Clinical Impression: Humeral avulsion of inferior glenohumeral ligament of left shoulder Qualifiers: Encounter type: initial encounter Qualified Code(s): S43.492A - Other sprain of left shoulder joint, initial encounter Disposition: DC-01 TO HOME OR SELFCARE Is pt being admited?: No Does the pt Need Aspirin: No Condition: Stable Instructions: Arm Fracture in Adults (ED) [facility] [[facility] - 3-5 Days LATRICE MAI MD [Staff Physician] - 3-5 Days Time of Disposition: 22:41
[2018-10-16 22:57] VITALS: BP 138/91
== END 2018-10-16 22:57 | disposition home or self-care (01) ==
LOC: ED 18:38
DX: S43.492A Other sprain of left shoulder joint, initial encounter (principal); I10 Essential (primary) hypertension; K21.9 Gastro-esophageal reflux disease without esophagitis; J45.909 Unspecified asthma, uncomplicated; E66.01 Morbid (severe) obesity due to excess calories; Z68.42 Body mass index [BMI] 45.0-49.9, adult; W22.09XA Striking against other stationary object, initial encounter; Y93.89 Activity, other specified; Y92.89 Other specified places as the place of occurrence of the external cause; Y99.8 Other external cause status
CPT/HCPCS: 29105; 73030; 73060; 96374; 96375; 99284; J1885; J2270; J2405

== ENCOUNTER 2020-05-18 00:21 | Emergency (ER) | payer SELFPAY ==
--- NOTE | 2020-05-18 00:55 | Emergency Department Report ---
ED ENT HPI - General Chief complaint: Nosebleed Stated complaint: nose bleed Time Seen by Provider: 05/18/20 00:52 Source: patient Mode of arrival: Ambulatory Limitations: No Limitations - History of Present Illness Initial comments: Patient is a 59-year-old female abscess emergency room with complaints of nosebleed. Patient states her left nare started bleeding tonight and has stopped 2 hours ago. Patient states is very strange for her to have a nosebleed. Patient states she wanted to have it checked out. Patient states her nosebleed stopped and has not restarted. Patient denies nose pain. Patient denies headache. Patient denies dizziness. Patient denies chest pain. Patient denies any other complaints. Patient denies chest pain. Patient denies headache. Patient denies blurry vision. Patient states she missed her blood pressure medications today. Patient denies recent travel. Patient denies recent international travel. Patient denies exposure to the novel coronavirus. Patient denies sick contacts. Patient denies fever and chills. Patient denies cough. Patient denies diarrhea. Patient denies coming in contact with anybody with symptoms of the novel coronavirus. MD complaint: epistaxis -: Sudden Location: nose Severity: mild Consistency: now resolved Improves with: pressure Worsens with: none Associated Symptoms: denies: fever, cough, gum swelling, toothache, pain with swallowing, sore throat, tinnitus, hearing loss, discharge from ear, rhinorrhea - Related Data Home Medications Medication Instructions Recorded Confirmed Last Taken ALPRAZolam [Xanax TAB] 0.25 mg PO TID PRN 09/26/19 09/26/19 Unknown Amlodipine Besylate [Norvasc] 10 mg PO DAILY 09/26/19 09/26/19 Unknown carisoprodoL [Soma] 350 mg PO BID 09/26/19 09/26/19 Unknown Previous Rx's Medication Instructions Recorded Last Taken Type Benzonatate [Tessalon Perles] 100 mg PO TID PRN #14 capsule 07/13/17 Unknown Rx Fluconazole (Nf) [Diflucan TAB] 150 mg PO ONCE #1 tablet 09/30/19 Unknown Rx Furosemide [Lasix TAB] 40 mg PO DAILY #30 tablet 09/30/19 Unknown Rx Allergies Allergy/AdvReac Type Severity Reaction Status Date / Time No Known Allergies Allergy Verified 07/12/17 13:11 ED Dental HPI - General Chief complaint: Nosebleed Stated complaint: nose bleed Time Seen by Provider: 05/18/20 00:52 Source: patient Mode of arrival: Ambulatory Limitations: No Limitations - Related Data Home Medications Medication Instructions Recorded Confirmed Last Taken ALPRAZolam [Xanax TAB] 0.25 mg PO TID PRN 09/26/19 09/26/19 Unknown Amlodipine Besylate [Norvasc] 10 mg PO DAILY 09/26/19 09/26/19 Unknown carisoprodoL [Soma] 350 mg PO BID 09/26/19 09/26/19 Unknown Previous Rx's Medication Instructions Recorded Last Taken Type Benzonatate [Tessalon Perles] 100 mg PO TID PRN #14 capsule 07/13/17 Unknown Rx Fluconazole (Nf) [Diflucan TAB] 150 mg PO ONCE #1 tablet 09/30/19 Unknown Rx Furosemide [Lasix TAB] 40 mg PO DAILY #30 tablet 09/30/19 Unknown Rx Allergies Allergy/AdvReac Type Severity Reaction Status Date / Time No Known Allergies Allergy Verified 07/12/17 13:11 ED Review of Systems ROS: Stated complaint: COLD/NOSE/THROAT PAIN/BLEEDING Other details as noted in HPI Constitutional: denies: chills, fever Eyes: denies: eye pain, eye discharge, vision change ENT: epistaxis. denies: ear pain, throat pain Respiratory: denies: cough, shortness of breath, wheezing Cardiovascular: denies: chest pain, palpitations Endocrine: no symptoms reported Gastrointestinal: denies: abdominal pain, nausea, diarrhea Genitourinary: denies: urgency, dysuria, discharge Musculoskeletal: denies: back pain, joint swelling, arthralgia Skin: denies: rash, lesions Neurological: denies: headache, weakness, paresthesias Psychiatric: denies: anxiety, depression Hematological/Lymphatic: denies: easy bleeding, easy bruising ED Past Medical Hx - Past Medical History Previous Medical History?: Yes Hx Hypertension: Yes Hx Congestive Heart Failure: No Hx Diabetes: No Hx GERD: Yes Hx Arthritis: Yes (knees hand back) Hx Asthma: No Hx COPD: No Additional medical history: bronchitis, knee arthritis bilaterally,obesity- morbid - Surgical History Past Surgical History?: Yes Additional Surgical History: bilateral knee surgery - Family History Family history: no significant - Social History Smoking Status: Never Smoker Substance Use Type: None - Medications Home Medications: Home Medications Medication Instructions Recorded Confirmed Last Taken Type Benzonatate [Tessalon Perles] 100 mg PO TID PRN #14 capsule 07/13/17 09/26/19 Unknown Rx ALPRAZolam [Xanax TAB] 0.25 mg PO TID PRN 09/26/19 09/26/19 Unknown History Amlodipine Besylate [Norvasc] 10 mg PO DAILY 09/26/19 09/26/19 Unknown History carisoprodoL [Soma] 350 mg PO BID 09/26/19 09/26/19 Unknown History Fluconazole (Nf) [Diflucan TAB] 150 mg PO ONCE #1 tablet 09/30/19 Unknown Rx Furosemide [Lasix TAB] 40 mg PO DAILY #30 tablet 09/30/19 Unknown Rx ED Physical Exam - General Limitations: No Limitations General appearance: alert, in no apparent distress - Head Head exam: Present: atraumatic, normocephalic - Eye Eye exam: Present: normal appearance, PERRL Pupils: Present: normal accommodation - ENT ENT exam: Present: normal exam, normal orophraynx, mucous membranes moist, TM's normal bilaterally, normal external ear exam - Neck Neck exam: Present: normal inspection - Respiratory Respiratory exam: Present: normal lung sounds bilaterally. Absent: respiratory distress, wheezes, rales - Cardiovascular Cardiovascular Exam: Present: regular rate, normal rhythm. Absent: systolic murmur, diastolic murmur, rubs, gallop - GI/Abdominal GI/Abdominal exam: Present: soft, normal bowel sounds. Absent: distended, tenderness, guarding - Extremities Exam Extremities exam: Present: normal inspection - Back Exam Back exam: Present: normal inspection - Neurological Exam Neurological exam: Present: alert, oriented X3 - Psychiatric Psychiatric exam: Present: normal affect, normal mood - Skin Skin exam: Present: warm, dry, intact, normal color. Absent: rash ED Course Vital Signs 05/18/20 05/18/20 05/18/20 00:24 00:58 01:00 Temperature 97.7 F Pulse Rate 107 H 88 88 Respiratory 18 20 Rate Blood Pressure 231/114 211/114 Blood Pressure 211/114 [Left] O2 Sat by Pulse 92 96 Oximetry 05/18/20 05/18/20 01:55 02:08 Temperature Pulse Rate 80 75 Respiratory Rate Blood Pressure Blood Pressure 193/108 171/95 [Left] O2 Sat by Pulse Oximetry - Reevaluation(s) Reevaluation #1: Patient's blood pressure still elevated. Patient given 0.2 mg clonidine. Patient's nosebleeds is controlled. 05/18/20 00:57 Reevaluation #2: Patient's blood pressure is better. Patient's nose bleed is still controlled. I discussed all results and clinical findings with patient. I discussed plan of care with patient. Patient agrees with plan of care. Patient is stable for discharge. Patient will be discharged home. Patient given discharge instructions. Patient voiced understanding of discharge instructions. 05/18/20 02:09 ED Medical Decision Making - Medical Decision Making Patient is a 59-year-old female that presents emergency room with a minor nosebleed. Patient's nosebleed was controlled prior to initial evaluation. Patient did not have any further problems with a nosebleed. Patient found to have severely elevated blood pressure. Patient was given clonidine 0.2 and her blood pressure responded well. Patient's blood pressure lowered to a more stable level. Patient was then discharged home. Patient instructed to follow- up with her primary care and continue all her blood pressure medications. Patient's blood pressure is elevated because she missed her blood pressure medications the day of the visit. . - Differential Diagnosis Nosebleed, hypertension, hypertensive urgency Critical care attestation.: If time is entered above; I have spent that time in minutes in the direct care of this critically ill patient, excluding procedure time. ED Disposition Clinical Impression: Hypertensive urgency, Bleeding nose Hypertension Qualifiers: Hypertension type: essential hypertension Qualified Code(s): I10 - Essential (primary) hypertension Disposition: DC-01 TO HOME OR SELFCARE Is pt being admited?: No Does the pt Need Aspirin: No Condition: Stable Instructions: How to Take Your Blood Pressure, Nosebleed, [id number], Managing Your Hypertension, Hypertension, Adult, Hypertension (ED) Additional Instructions: Patient to follow-up with primary care in 2 to 3 days. Patient to follow-up with ENT in 2 to 3 days. Patient to rest. Patient to increase water. Patient to avoid strenuous exercise or heavy lifting until cleared by primary care. Patient to monitor blood pressure at home. Patient to keep a blood pressure log. Patient to take blood pressure log to all follow appointments. Patient to eat a heart healthy and low-salt diet. Patient to take meds as directed. Patient to return to the ER if condition worsens, changes or new symptoms arise. Referrals: PRIMARY CARE, [Primary Care Provider] - 2-3 Days Time of Disposition: 02:11
[2020-05-18] MEDS ORDERED: cloNIDine 0.2 MG TAB ONE (00:56)
[2020-05-18] MEDS ORDERED: cloNIDine 0.2 MG TAB PO ONE (00:57)
[2020-05-18 02:08] VITALS: BP 171/95
== END 2020-05-18 02:25 | disposition home or self-care (01) ==
LOC: ED 00:21
DX: I16.0 Hypertensive urgency (principal); R04.0 Epistaxis; K21.9 Gastro-esophageal reflux disease without esophagitis; E66.01 Morbid (severe) obesity due to excess calories; Z68.45 Body mass index [BMI] 70 or greater, adult; M13.88 Other specified arthritis, other site; Z98.890 Other specified postprocedural states; Z79.899 Other long term (current) drug therapy
CPT/HCPCS: 99282